=== PATIENT | female | born 1955 | race Two or more races ===

== ENCOUNTER 2023-08-10 06:47 | Day surgery (SDC) | payer OTHER ==
[~2023-08-10 06:47] MED LIST: AMBIEN5 MG PO; CLOMIPRAMINE HC25 MG PO; FOSAMAX70 MG PO; LOSARTAN-HCTZ1 EAC2 PO; METFORMIN HCL1000 M2 PO; MULTIPLE VITAM1 EAC2 PO; PROZAC40 MG PO; SINGULAIR10 MG PO; SYNTHROID75 MCG PO; XANAX1 MG PO; ZOCOR40 MG PO
[2023-08-10] MEDS ORDERED: TRAM1TAB98 PO (12:18)
== END 2023-08-10 16:45 | disposition home or self-care (01) ==
LOC: CIR.AMB 06:47
PROVIDERS: ATTEND Obstetrics & Gynecology Gynecology
DX: N88.4 Hypertrophic elongation of cervix uteri (principal); N88.0 Leukoplakia of cervix uteri; I10 Essential (primary) hypertension; Z20.822 Contact with and (suspected) exposure to COVID-19

== ENCOUNTER 2025-05-30 12:27 | Inpatient (IN) | payer OTHER ==
[~2025-05-30] VITALS: Ht 61 cm; Wt 70.3 kg
[~2025-05-30 12:27] MED LIST changes: +TRAM1TAB98 PO
[2025-05-30 14:34] LABS: RH POSITIVE
[2025-06-05] MEDS ORDERED: METRONIDAZOLE/SODIUM CHLORIDE 500 MG/100 ML PIGGYBACK IV ONE ×2 (08:30)
[2025-06-05] MEDS ORDERED: CEFTRIAXONE SODIUM 2,000 MG VIAL IV ONE (08:30)
[2025-06-05] MEDS ORDERED: LIDOCAINE HCL 1%/EPINEPHRINE 20ML VIAL IJ ONE (08:30)
[2025-06-05] MEDS ORDERED: BUPIVACAINE HCL 30 ML VIAL IJ ONE (08:30)
[2025-06-05] MEDS ORDERED: OxyCODONE HCL 5 MG TABLET (ROXICODONE) PO PRN (09:15)
[2025-06-05] MEDS ORDERED: MORPHINE SULFATE 4 MG/ML CARTRIDGE IV PRN (09:15)
[2025-06-05] MEDS ORDERED: ONDANSETRON HCL 2 MG/ML VIAL IV PRN (09:15)
[2025-06-05] MEDS ORDERED: RINGERS SOLUTION,LACTATED 1,000 ML IV SCH (09:15)
[2025-06-05] MEDS ORDERED: DEXTROSE 50 % IN WATER 0.5 G/ML DISP.SYRIN IV PRN (09:15)
[2025-06-05 11:44] LABS: BASO % 0.4 % (0.1-1.2); EOS # 0.02 (0.04-0.54); EOS % 0.2 % (0.7-7.0); LYMPH # 1.07 (1.18-3.74); LYMPH % 9.4 % (19.3-53.1); MEAN PLATELET VOLUME 10.10 fl (9.4-12.4); MONO # 0.87 (0.24-0.82); MONO % 7.6 % (4.7-12.5); NEUT # 9.37 (1.56-6.13); NEUT % 81.9 % (34.0-71.1); RED CELL DISTRIBUTION WIDTH 12.4 % (11.6-14.4)
[2025-06-05 12:21] LABS: BUN CREA RATIO 24.0 (7.0-25.0); CREATININE SERUM 0.58 mg/dL (0.55-1.02); GFR 103.08; GLUCOSE FASTING 153.0 mg/dL (65-100); OSMOLALITY SERUM 281.0 MOSM/KG (275-295)
[2025-06-05] MEDS ORDERED: HYOSCYAMINE SULFATE 0.125 MG TAB.SUBL SL SCH (13:00)
[2025-06-05] MEDS ORDERED: DEXTROSE 50 % IN WATER 0.5 G/ML VIAL IV PRN (13:30)
[2025-06-05] MEDS ORDERED: INSULIN LISPRO 1,000 UNIT/10 ML UNITS SUBCUTANEO PRN (13:30)
[2025-06-05] MEDS ORDERED: ENALAPRILAT DIHYDRATE 1.25 MG/ML VIAL IV PRN (13:30)
[2025-06-05] MEDS ORDERED: SUGAMMADEX SODIUM 200 MG/2 ML VIAL IV ONE (13:45)
[2025-06-05] MEDS ORDERED: ACETAMINOPHEN 500 MG GEL..CAP PO SCH (14:00)
[2025-06-05 16:57] VITALS: BP 143/80; O2SAT 94
[2025-06-05] MEDS ORDERED: GABAPENTIN 300 MG CAPSULE PO SCH (17:00)
[2025-06-05 20:52] VITALS: BP 131/84
[2025-06-05] MEDS ORDERED: FAMOTIDINE/PF 20 MG/2 ML VIAL IV PUSH SCH (21:00)
[2025-06-06 01:10] VITALS: BP 132/74; O2SAT 98
[2025-06-06 06:45] LABS: BASO % 0.4 % (0.1-1.2); EOS # 0.03 (0.04-0.54); EOS % 0.4 % (0.7-7.0); LYMPH # 1.60 (1.18-3.74); LYMPH % 21.0 % (19.3-53.1); MEAN PLATELET VOLUME 10.50 fl (9.4-12.4); MONO # 0.97 (0.24-0.82); NEUT # 4.96 (1.56-6.13); NEUT % 65.2 % (34.0-71.1); RED CELL DISTRIBUTION WIDTH 12.3 % (11.6-14.4)
[2025-06-06 07:02] LABS: MONO % 12.7 % (4.7-12.5)
[2025-06-06 07:05] LABS: BUN CREA RATIO 19.0 (7.0-25.0); CREATININE SERUM 0.59 mg/dL (0.55-1.02); GFR 101.06; GLUCOSE FASTING 87.0 mg/dL (65-100); OSMOLALITY SERUM 276.0 MOSM/KG (275-295)
[2025-06-06 08:00] VITALS: BP 144/82; O2SAT 95
[2025-06-06] MEDS ORDERED: LOSARTAN/HYDROCHLOROTHIAZIDE 1 UDTAB TABLET PO SCH (09:00)
[2025-06-06] MEDS ORDERED: MAGNESIUM SULFATE IN WATER 50 ML IV ONE (10:30)
[2025-06-06] MEDS ORDERED: MAGNESIUM SULFATE IN WATER 50 ML IV NR (10:45)
[2025-06-06] MEDS ORDERED: ENOXAPARIN SODIUM 40 MG/0.4 ML SYRINGE SUBCUTANEO SCH (17:00)
[2025-06-06] MEDS ORDERED: SIMVASTATIN 40 MG TABLET PO SCH (17:00)
[2025-06-06 17:42] VITALS: BP 134/84; O2SAT 96
[2025-06-07 02:05] VITALS: BP 127/78; O2SAT 94
[2025-06-07 06:54] LABS: BASO % 0.4 % (0.1-1.2); EOS # 0.14 (0.04-0.54); EOS % 1.9 % (0.7-7.0); LYMPH # 1.23 (1.18-3.74); LYMPH % 16.4 % (19.3-53.1); MEAN PLATELET VOLUME 10.10 fl (9.4-12.4); MONO # 0.71 (0.24-0.82); MONO % 9.5 % (4.7-12.5); NEUT # 5.37 (1.56-6.13); NEUT % 71.5 % (34.0-71.1); RED CELL DISTRIBUTION WIDTH 12.3 % (11.6-14.4)
[2025-06-07 07:39] LABS: BUN CREA RATIO 13.0 (7.0-25.0); CREATININE SERUM 0.64 mg/dL (0.55-1.02); GFR 92.01; GLUCOSE FASTING 97.0 mg/dL (65-100); OSMOLALITY SERUM 283.0 MOSM/KG (275-295)
[2025-06-07 08:02] VITALS: BP 138/85; O2SAT 95
[2025-06-07] MEDS ORDERED: ENOXAPARIN SODIUM 40 MG/0.4 ML SYRINGE SUBCUTANEO SCH (09:00)
[2025-06-07] MEDS ORDERED: POTASSIUM PHOS,M-BASIC-D-BASIC 3 MM/ML VIAL IV NR (10:15)
[2025-06-07 16:00] VITALS: BP 112/73; O2SAT 95
[2025-06-08 01:55] VITALS: BP 128/77; O2SAT 96
[2025-06-08 08:00] VITALS: BP 124/81; O2SAT 95
[2025-06-08] MEDS ORDERED: NEURONTIN300 MG PO (15:34)
[2025-06-08] MEDS ORDERED: TYLENOL ARTHRI650 MG PO (15:34)
[2025-06-08] MEDS ORDERED: INTESTINEX680 M1 PO (15:34)
[2025-06-08 17:44] VITALS: BP 128/29; O2SAT 96
== END 2025-06-08 21:49 | disposition home or self-care (01) | DRG 331 ==
LOC: O/R 06-05 06:00 → SURH 06-05 12:04 → SURG 06-05 12:30 → SURH 06-08 21:49
PROVIDERS: Internal Medicine Geriatric Medicine; ADMIT Surgery; ATTEND Surgery
PROC: 0DBP4ZZ Excision of Rectum, Percutaneous Endoscopic Approach (ICD-10-PCS; 2025-06-05)
PROC: 0DJD8ZZ Inspection of Lower Intestinal Tract, Via Natural or Artificial Opening Endoscopic (ICD-10-PCS; 2025-06-05)
PROC: 0DTN4ZZ Resection of Sigmoid Colon, Percutaneous Endoscopic Approach (ICD-10-PCS; principal; 2025-06-05 13:30)
DX: K57.20 Diverticulitis of large intestine with perforation and abscess without bleeding (principal); I10 Essential (primary) hypertension; E11.9 Type 2 diabetes mellitus without complications; Z97.4 Presence of external hearing-aid